=== PATIENT | male | born 1970 | race Caucasian/White ===

== ENCOUNTER 2021-11-19 01:20 | Inpatient (IN) | payer MEDICAID ==
[~2021-11-19] VITALS: Ht 175.3 cm; Wt 86.2 kg
[2021-11-19 01:22] VITALS: BP 123/79
--- NOTE | 2021-11-19 02:06 | NUR ---
PATIENT AMBULATORY BIB SELF WITH COMPLAINT OF NON RADIATING CHEST PAIN HE RATES 7/10. SYMPTOMS HAVE BEEN PRESENT FOR AT LEAST 2 WEEKS. PT STATES HE HAD PFIZER COVID VACCINE LAST YEAR AND FELT TINGLING ON LEFT HAND. HE STATES HE STILL HAS TINGLING AT TIMES ALONG WITH THE CHEST PAIN. DENIES ANY MENTAL HEALTH HISTORY BUT ADMITS TO HIGH LEVELS OF STRESS. PT SMOKES A BOX OF CIGARETTES DAILY, DRINKS ALCOHOL OCCASIONALLY, DENIES ANY DRUG USE. PMH: CT WITH 3 STENT PLACEMENT 5 YEARS AGO, TAKES DAILY ASPIRIN 81 MG. HAS NEVER FOLLOWED UP WITH [employer].
[2021-11-19] MEDS ORDERED: ASPIRIN 325 MG TAB PO ONE (02:20)
[2021-11-19] MEDS ORDERED: NITROGLYCERIN 0.4 MG TAB SL ONE (02:20)
[2021-11-19 03:03] LABS: ALBUMIN 3.1 g/dL (3.4-5.0); ANION GAP 12.7 (8-16); ASPARTATE AMINOTRANSFERASE 24 U/L (15-37); CARBON DIOXIDE 24.3 mmol/L (21-32); CHLORIDE 105 mmol/L (98-107); CREATININE 0.9 mg/dL (0.6-1.3); GFR ARICAN-AMERICAN 115 mL/min (>90); GLUCOSE 104 mg/dL (74-106); SODIUM SERUM 138 mmol/L (136-145); TOTAL BILIRUBIN 0.3 mg/dL (0.0-1.0); UREA NITROGEN, BLOOD 23 mg/dL (7-18)
[2021-11-19 03:19] LABS: BASOPHILS # (AUTO) 0.1 K/uL (0.00-0.22); BASOPHILS % (AUTO) 0.7 % (0.0-2.0); EOSINOPHILS # (AUTO) 0.3 K/uL (0-0.4); EOSINOPHILS % (AUTO) 2.9 % (0.0-4.0); HEMATOCRIT 40.4 % (36-52); HEMOGLOBIN 13.7 g/dL (12.0-18.0); LYMPHOCYTES # (AUTO) 2.4 K/uL (2.0-11.5); LYMPHOCYTES % (AUTO) 25.3 % (20.5-51.1); MEAN CORPUSCULAR HEMOGLOBIN 30 pg (27-31); MEAN CORPUSCULAR HGB CONC 34 g/dL (33-37); MEAN CORPUSCULAR VOLUME 89.2 fL (80-94); MONOCYTES # (AUTO) 0.7 K/uL (0.8-1.0); NEUTROPHILS # (AUTO) 5.9 K/uL (1.8-7.7); NEUTROPHILS % (AUTO) 63.1 % (42.2-75.2); PLATELET COUNT (AUTO) 358 K/uL (140-450); RED BLOOD CELL COUNT(AUTO) 4.53 MIL/uL (4.20-6.10); RED CELL DISTRIBUTION WIDTH 14.8 % (11.6-13.7); WHITE BLOOD COUNT (AUTO) 9.3 K/uL (4.8-10.8)
[2021-11-19] MEDS ORDERED: MORPHINE SULFATE 4 MG/ML SYR IVP PRN (05:20)
[2021-11-19] MEDS ORDERED: ASPI-1822 PO (05:25)
--- NOTE | 2021-11-19 05:40 | NUR ---
RECEIVED PT FROM ER, TRANSPORTED VIA [facility] WITH 2 STAFF ESCORTED. AWAKE, ALERT, ORIENTED AND VERBALLY RESPONSIVE , MOSTLY IN [place]. PATIENT ABLE TO AMBULATE FROM GURNEY TO BED INDEPENDENTLY. RESPIRATION EVEN, NO SOB OR DISTRESS. SKIN INTACT, DRY AND WARM. PT DENIED OF HAVING CHEST PAIN, DIZZY OR HEADACHE AT THIS TIME. INITIAL VITAL SIGNS B/P-99/66; P-54; T-97.1; R-18; O2 SAT-99%. PT IS ON BED, ON STABLE CONDITION AND CLOSED HIS BOTH EYES, AROUSABLE ON STIMULI. PT IV SITE IS ON LEFT AC WITH 20 GAUGE. CONTINUE TO MONITOR.
--- NOTE | 2021-11-19 05:48 | NUR ---
Patient will be admitted to care of [facility]UN[facility]. Admited to TELE. Will go to room 105B. Belongings list completed. Report to ESPERANZA, BEDSIDE REPORT PROVIDED. PT IN STABLE CONDITION WHEN TRANSFERRED TO TELE FLOOR.
--- NOTE | 2021-11-19 07:00 | NUR ---
PATIENT HAS BEEN SCREENED AND CATEGORIZED MODERATE NUTRITION RISK. PATIENT WILL BE SEEN WITHIN 3-5 DAYS OF ADMISSION. 11/20/21-11/22/21 RAGINI GARCIA MS, RDN
--- NOTE | 2021-11-19 07:02 | NUR ---
MRSA NARES SWAB WAS WAS TAKEN FEW MINUTES AFTER PT ARRIVAL TO [facility]. WILL CONTINUE TO MONITOR. - MNUREE
--- NOTE | 2021-11-19 07:32 | NUR ---
PT IS STABLE. ENDORSED TO DAY SHIFT NURSE FOR CONTINUITY OF PT CARE. - MNUREE.
--- NOTE | 2021-11-19 07:34 | NUR ---
RECEIVED PATIENT REPORT FROM FINISHING RANGE SUPERVISOR NURSE. PT IS ADMITTED FOR NSTEMI. PT IS AOX4, ABLE TO MAKE NEEDS KNOWN. RESPIRATIONS EVEN AND UNLABORED. ON ROOM AIR AND NO DISTRESS NOTED. SKIN IS WARM, DRY, AND INTACT. IV SITE ON LAC 20G INTACT, PATENT, AND SALINE LOCKED. PT DENIES CHEST PAIN AT THE MOMENT. ABD IS SOFT, FLAT, AND NON-DISTENDED. BOWEL SOUNDS ACTIVE IN ALL QUADRANTS. PLAN OF CARE DISCUSSED. SAFETY PRECAUTIONS IN PLACE. CALL LIGHT WITHIN REACH. WILL CONTINUE TO MONITOR.
[2021-11-19 08:00] VITALS: BP 103/69
--- NOTE | 2021-11-19 09:30 | NUR ---
ALL SCHEDULED MEDS GIVEN. PT IS STABLE. NO DISTRESS NOTED. WILL CONTINUE TO MONITOR.
[2021-11-19] MEDS ORDERED: NITROGLYCERIN 0.4 MG TAB SL PRN (09:50)
[2021-11-19 12:00] VITALS: BP 127/81
--- NOTE | 2021-11-19 12:33 | NUR ---
COLLECTED MRSA SPECIMEN AND SENT DOWN TO LAB
--- NOTE | 2021-11-19 12:33 | NUR ---
PLANT ASSIGNER AT BEDSIDE.
--- NOTE | 2021-11-19 15:10 | NUR ---
DR. CAMERON AT PATIENT'S BEDSIDE DISCUSSING PLAN OF CARE.
[2021-11-19 16:00] VITALS: BP 106/64
[2021-11-19] MEDS ORDERED: ATORVASTATIN 20 MG TAB PO SCH (17:00)
--- NOTE | 2021-11-19 17:50 | NUR ---
CHECKED ON PATIENT. PT IS STABLE. NO DISTRESS NOTED. WILL CONTINUE TO MONITOR.
--- NOTE | 2021-11-19 19:20 | NUR ---
ENDORSED TO CERTIFIED CORPORATE TRAVEL EXECUTIVE NURSE FOR CONTINUITY OF CARE. PT IS STABLE
--- NOTE | 2021-11-19 19:25 | NUR ---
RECEIVED BEDSIDE REPORT FROM DAY SHIFT RN FOR CONTINUITY OF CARE. PT IS AWAKE. PT IS NOT IN ANY ACUTE DISTRESS. BREATHING EVEN AND UNLABORED. PT HAS LEFT AC 20 GAUGE SALINE LOCK. CALL LIGHT WITHIN REACH. ALL SAFETY MEASURES TAKEN. WILL CONTINUE TO MONITOR THE PT.
[2021-11-19 20:00] VITALS: BP 99/62
[2021-11-19] MEDS: ENOXAPARIN 100 MG/ML SYR SUBQ SCH (20:13)
[2021-11-19] MEDS: METOPROLOL 25 MG TAB PO SCH (20:33)
--- NOTE | 2021-11-19 21:20 | NUR ---
PT IS AWAKE IN BED. PT IS NOT IN ANY ACUTE DISTRESS. PT HAS NO COMPLAINS AT THIS TIME. CALL LIGHT WITHIN REACH. ALL SAFETY MEASURES TAKEN. WILL CONTINUE TO MONITOR THE PT.
--- NOTE | 2021-11-19 23:40 | NUR ---
PT IS SLEEPING COMFORTABLY IN BED. PT IS NOT IN ANY DISTRESS. BREATHING EVEN AND UNLABORED. CALL LIGHT WITHIN REACH. ALL SAFETY MEASURES TAKEN. WILL CONTINUE TO MONITOR THE PT.
[2021-11-20] VITALS: BP 99/63
[2021-11-20 04:00] VITALS: BP 107/69
[2021-11-20 07:10] LABS: BASOPHILS # (AUTO) 0.1 K/uL (0.00-0.22); BASOPHILS % (AUTO) 0.8 % (0.0-2.0); EOSINOPHILS # (AUTO) 0.3 K/uL (0-0.4); HEMATOCRIT 43.2 % (36-52); HEMOGLOBIN 14.4 g/dL (12.0-18.0); LYMPHOCYTES # (AUTO) 2.7 K/uL (2.0-11.5); MEAN CORPUSCULAR HEMOGLOBIN 30 pg (27-31); MEAN CORPUSCULAR HGB CONC 33 g/dL (33-37); MEAN CORPUSCULAR VOLUME 89.6 fL (80-94); MONOCYTES # (AUTO) 0.7 K/uL (0.8-1.0); MONOCYTES % (AUTO) 8.1 % (1.7-9.3); NEUTROPHILS # (AUTO) 4.4 K/uL (1.8-7.7); NEUTROPHILS % (AUTO) 54.1 % (42.2-75.2); PLATELET COUNT (AUTO) 368 K/uL (140-450); RED BLOOD CELL COUNT(AUTO) 4.82 MIL/uL (4.20-6.10); RED CELL DISTRIBUTION WIDTH 14.9 % (11.6-13.7); WHITE BLOOD COUNT (AUTO) 8.2 K/uL (4.8-10.8)
[2021-11-20 07:18] LABS: ANION GAP 12.2 (8-16); CARBON DIOXIDE 26.9 mmol/L (21-32); CREATININE 0.8 mg/dL (0.6-1.3); POTASSIUM 4.1 mmol/L (3.5-5.1)
--- NOTE | 2021-11-20 07:20 | NUR ---
ENDORSED PT TO DAY SHIFT RN FOR CONTINUITY OF CARE. ALL NEEDS MET. PT IS STABLE.
--- NOTE | 2021-11-20 07:22 | NUR ---
RECEIVED PATIENT REPORT FROM DIRECTOR LEARNING NURSE. PT IS AOX4, ABLE TO MAKE NEEDS KNOWN. RESPIRATIONS EVEN AND UNLABORED. ON ROOM AIR AND NO DISTRESS NOTED. SKIN IS WARM, DRY, AND INTACT. IV SITE ON LAC 20G INTACT, PATENT, AND SALINE LOCKED. PT DENIES CHEST PAIN AT THE MOMENT. ABD IS SOFT, FLAT, AND NON-DISTENDED. BOWEL SOUNDS ACTIVE IN ALL QUADRANTS. PLAN OF CARE DISCUSSED. SAFETY PRECAUTIONS IN PLACE. CALL LIGHT WITHIN REACH. WILL CONTINUE TO MONITOR.
[2021-11-20 08:00] VITALS: BP 104/65
[2021-11-20] MEDS ORDERED: ECOTRIN 81 MG TABEC PO SCH (09:00)
[2021-11-20] MEDS: METOPROLOL 25 MG TAB PO SCH (09:00)
[2021-11-20] MEDS ORDERED: lisinopriL 5 MG TAB PO SCH (09:00)
[2021-11-20] MEDS ORDERED: ATORVASTATIN 80 MG TAB PO SCH (09:00)
[2021-11-20] MEDS: ENOXAPARIN 100 MG/ML SYR SUBQ SCH (09:11)
--- NOTE | 2021-11-20 10:50 | NUR ---
DR. PALMA AT PATIENT'S BEDSIDE DISCUSSING PLAN OF CARE WITH PATIENT AND FAMILY
--- NOTE | 2021-11-20 11:25 | NUR ---
CONTACTED [facility] AND SPOKE TO VIVIAN FRIAS. ENDORSED PATIENT REPORT. PATIENT WILL BE GOING TO ROOM 342B UNDER DR. QUIÑONES.
--- NOTE | 2021-11-20 11:47 | NUR ---
[facility] AT PATIENT'S BEDSIDE. PATIENT WILL BE TRANSFERRED TO ROOM 342B IN [facility]. DR. QUIÑONES WILL BE HIS ATTENDING
--- NOTE | 2021-11-20 11:49 | NUR ---
PATIENT DISCHARGED OFF THE UNIT. PATIENT LEFT WITH LAC 20 G IV. INTACT AND PATENT. PT WAS STABLE PRIOR TO TRANSFER.
== END 2021-11-20 12:23 | disposition short-term general hospital (02) | DRG 190 ==
LOC: MED 01:20 → MTU 05:20
PROVIDERS: ADMIT Family Medicine; ATTEND Family Medicine
DX: I21.4 Non-ST elevation (NSTEMI) myocardial infarction (principal); E44.0 Moderate protein-calorie malnutrition; E87.0 Hyperosmolality and hypernatremia; N39.0 Urinary tract infection, site not specified; I25.10 Atherosclerotic heart disease of native coronary artery without angina pectoris; E87.6 Hypokalemia; I24.9 Acute ischemic heart disease, unspecified; Z20.822 Contact with and (suspected) exposure to COVID-19; R74.01 Elevation of levels of liver transaminase levels; E86.0 Dehydration; I25.2 Old myocardial infarction; Z68.28 Body mass index [BMI] 28.0-28.9, adult
CPT/HCPCS: 36415; 71045; 80048; 80053; 84484; 85025; 87081; 93005; 99285; J1650; Q0092